=== PATIENT | female | born 1945 | race Caucasian/White ===

== ENCOUNTER 2019-10-07 18:50 | Inpatient (IN) ==
[2019-10-07] MEDS ORDERED: NS 1,000 ML IV ONE ×2 (19:51→23:40)
[2019-10-07 20:29] LABS: ALB/GLOB RATIO 1.2; ALBUMIN 3.9 g/dL (3.5-5.0); CALCIUM 9.5 mg/dL (8.8-10.2); CREATININE 2.3 mg/dL (0.5-0.9); TOTAL BILIRUBIN 0.57 mg/dL (0.20-1.00); TOTAL PROTEIN 7.2 g/dL (6.3-8.3)
[2019-10-07 20:49] LABS: CK INDEX 1.1 (0.0-2.5); CK-MB 3.45 ng/mL (0.0-5.0)
[2019-10-07 22:14] LABS: BASO# 0.02 X1000 (0.0-0.2); BASO% 0.1 % (0.0-0.8); HEMATOCRIT 35.4 % (37.0-47.0); HEMOGLOBIN 11.4 g/dL (12.0-16.0); IMM GRAN# 0.11 X1000 (0.0-0.04); IMM GRAN% 0.5 % (0.0-0.5); LYMPH# 0.36 X1000 (1.2-3.4); LYMPH% 1.5 % (20.5-51.1); MCH 28.1 PG (27-31); MCHC 32.2 g/dL (33-37); MCV 87.2 FL (81-99); MONO# 1.24 X1000 (0.11-0.59); MONO% 5.3 % (1.7-9.3); NEUT# 21.83 X1000 (1.4-6.5); NEUT% 92.6 % (42.2-75.2); PLT 162 X1000 (130-400); RBC 4.06 XMIL (4.2-5.4); RDW 13.8 % (11.5-14.5); WBC 23.56 X1000 (4.8-10.8)
[2019-10-08 00:15] LABS: URINE SOURCE CATH
[2019-10-08 00:20] LABS: BILIRUBIN URINE NEGATIVE (NEGATIVE); BLOOD URINE SMALL (NEGATIVE); COLOR YELLOW; GLUCOSE URINE NEGATIVE (NEGATIVE); KETONE URINE NEGATIVE (NEGATIVE); LEUKOCYTES URINE NEGATIVE (NEGATIVE); NITRITE URINE NEGATIVE (NEGATIVE); PROTEIN URINE TRACE mg/dL (NEGATIVE); SP GRAVITY URINE 1.013; TURBIDITY URINE CLEAR (CLEAR); UR EPITHELIAL CELLS <10 /HPF (<10); URINE BACTERIA NEGATIVE /HPF; URINE RBC <10 /HPF (<10); URINE WBC <10 /HPF (<10); UROBILINOGEN URINE NORMAL (NORMAL)
--- NOTE | 2019-10-08 01:17 | PROVIDER DOCUMENTATION ---
This chart was entered by Stephanie Stiles Scribe, acting as scribe for Lamont Torrez DO. HPI-General Adult - General Chief Complaint: Fall Stated Complaint: FALL Time Seen by Provider: 10/07/19 19:42 Source: patient, EMS Home Medications: Home Medication List Medication Instructions Recorded Confirmed Last Taken Type Aripiprazole 30 mg PO DAILY 10/07/19 10/07/19 Unknown History Aspirin EC 81 mg PO DAILY 10/07/19 10/07/19 Unknown History Furosemide [Lasix] 40 mg PO DAILY 10/07/19 10/07/19 10/07/19 History 0900 Gabapentin 300 mg PO TID 10/07/19 10/07/19 Unknown History Hydralazine [Apresoline] 50 mg PO BID 10/07/19 10/07/19 Unknown History Insulin Glargine,Hum.rec.anlog 55 units SQ QHS 10/07/19 10/07/19 Unknown History [Lantus Solostar] Metoprolol [Lopressor] 50 mg PO DAILY 10/07/19 10/07/19 Unknown History Paroxetine [Paxil] 10 mg pe PO DAILY 10/07/19 10/07/19 Unknown History Pravastatin Sodium 80 mg PO DAILY 10/07/19 10/07/19 Unknown History - History of Present Illness -Gen Adult Nature of Presenting Problems: Pt is a 74 yowf brought in by EMS for falling 2 xs today at home. Pt states she woke up with a headache and stomachache. Pt states she took PeptoBismal and felt better. Pt states later today her legs startedshaking and then she fell and hit her back on the door frame. Pt states her back is now hurting and her legs feel weak. Pt has a hx of CHF, HTN, hyperlipidemia, irregular heart rhythm and cellulitits on her legs and feet. Pt is pale and alert. Location of Pain/Injury: reports: back, generalized (generalized weakness) Pain Radiation: reports: no radiation Quality of Pain: reports: aching Severity: reports: moderate Onset/Duration: reports: abrupt, this morning Timing: reports: still present, getting worse Context/Activities at Onset: reports: light activity Modifying Factors: worse with: movement Associated Symptoms: reports: loss of appetite, weakness Similar Symptoms Previously?: No Recently seen or treated by another doctor?: Yes (Pt states she saw her PCP Dr. Reyna 1 wk ago) Review of Systems - Adult - REVIEW OF SYSTEMS - ADULT Constitutional: denies: chills, fever Eyes: reports: no symptoms reported Ears, Nose, Mouth & Throat: reports: no symptoms reported Cardiovascular: denies: chest pain, syncope Respiratory: denies: cough, shortness of breath Gastrointestinal: denies: abdominal pain, nausea, vomiting Genitourinary: reports: no symptoms reported Musculoskeletal: reports: see HPI, back pain, muscle weakness Integumentary: reports: no symptoms reported Neurological: reports: see HPI, loss of balance Psychiatric: reports: no symptoms reported Endocrine: reports: no symptoms reported Hematologic/Lymphatic: reports: no symptoms reported Allergic/Immunologic: reports: no symptoms reported All Other Systems: Reviewed and Negative Past History - Adult - PAST MEDICAL HISTORY-ADULT Review of Records: reports: Old Records Reviewed, Nursing Assessment Review, Medications Reviewed, Social history reviewed & non-contributory. Major Childhood Illnesses: reports: denies history Cardiovascular: reports: CHF, HTN, hyperlipidemia Respiratory: reports: denies history Gastrointestinal: reports: denies history Obstetrical/Gynecological: reports: denies history Genitourinary: reports: denies history Musculoskeletal: reports: denies history Neurological: reports: denies history Endocrine/Immune: reports: denies history Other Conditions: reports: denies history, skin disorder (cellulitis) - IMMUNIZATION STATUS Childhood Immunizations: See Nurse Assessment Flu Vaccine: See Nurse Assessment - FAMILY HISTORY Family History: reviewed, not pertinent - SOCIAL HISTORY Smoking: non-smoker Substance Use: denies Living Situation: alone Physical Exam-General - PHYSICAL EXAM-ADULT Initial Vital Signs Reviewed: Yes - CONSTITUTIONAL General Appearance: appears well, alert, no apparent distress, obese - EYES Eyes: PERRL/EOMI, pink conjunctivae - HEAD, EARS, NOSE, MOUTH & THROAT HENMT: normocephalic/atraumatic, moist mucous membranes, normal ENT inspection, pharynx normal - NECK Neck: non-tender, normal inspection - RESPIRATORY Respiratory: chest non-tender, lungs clear, normal breath sounds, no pleuratic chest pain, no respiratory distress, no accessory muscle use - CARDIOVASCULAR Cardiovascular: normal peripheral pulses - GASTROINTESTINAL (ABDOMEN) Abdominal Exam: normal bowel sounds, non tender, soft, no organomegaly, no pulsatile mass - LYMPHATIC Lymphatic: no adenopathy - MUSCULOSKELETAL Back Exam: normal inspection, no CVA tenderness, no vertebral tenderness Extremity: normal range of motion, non-tender, normal inspection, pedal edema (bilateral), tenderness (left leg) - SKIN Integumentary: warm/dry, pallor - NEUROLOGIC Neurologic: grossly normal - PSYCHIATRIC Psych/Mental Status: normal mood/affect, normal thought content, normal thought process, oriented x 3 Progress - PLAN OF CARE/RESULTS Progress/Plan/Lab Results: Orders Category Date Time Status NEWS Score 2-4:Order NEWS Lactate Series NOW Care 10/07/19 19:07 Active CBC WITH ELECTRONIC DIFF [HEME] Stat Lab 10/07/19 19:50 Uncollected CK PROFILE [SP CHEM] Stat Lab 10/07/19 20:00 Received COMPREHENSIVE METABOLIC PANEL [CHEM] Stat Lab 10/07/19 20:00 Received LACTATE, PLASMA [CHEM] Q3H Lab 10/07/19 19:15 Uncollected LACTATE, PLASMA [CHEM] Q3H Lab 10/07/19 22:15 Uncollected LACTATE, PLASMA [CHEM] Q3H Lab 10/08/19 01:15 Uncollected TROPONIN T HIGH SENSITIVITY Stat Lab 10/07/19 19:50 Uncollected 0.9% Sodium Chloride Inj [Ns] 1,000 ml Med 10/07/19 19:51 Active IV 500 mls/hr Result Diagrams: 10/07/19 21:56 10/07/19 20:00 - XRAY 1 XRAY Study: Chest Impression: See EMR Report - CONSULTS/PCP/HOSPITALIST Notification #1 *Consult/PCP/Hospitalist*: Dr Mosley Consult Disposition: Will see in ED Departure - Departure Date of Disposition Decision: 10/08/19 Time of Disposition Decision: 01:15 DIAGNOSIS: Weakness Leukocytosis Qualifiers: Leukocytosis type: unspecified Qualified Code(s): D72.829 - Elevated white blood cell count, unspecified Disposition: ADMITTED INPATIENT 09 Certified Medical Emergency: Emergent Condition: Stable Referrals and Follow-Ups: Stevie Reyna Jr, MD [Primary Care Provider] - - Critical Care Note This patient required my direct & personal management of CC.: No Attestation - Physician/ MEAGAN Attestation Patient care was provided by Advanced Practice Provider:: No The physician spent face to face time with patient:: Yes Advanced Practice Provider documentation review:: Supervising physician onsite and consulted in the evaluation and care of this patient. The physician did have a face to face encounter with the patient. This chart was documented by the indicated scribe, (Stephanie Stiles, Mya) and accurately reflects the services I performed and decisions made by , Lamont Torrez DO, as attested by the provider's signature.
[2019-10-08] MEDS ORDERED: VANCOMYCIN IV PER PHARMACY MISC SCH (02:00)
--- NOTE | 2019-10-08 03:15 | HISTORY AND PHYSICAL ---
PRIMARY CARE PROVIDER: Dr. Reyna. CHIEF COMPLAINT: Weakness, falls, not feeling well. HISTORY OF PRESENTING ILLNESS: A 74-year-old elderly female with a history of recurrent falls, diabetes mellitus type 2, hypertension, CHF and atrial fibrillation, who had presented to the emergency department due to 1-day history of having difficulty ambulating. She states that she was so weak she was unable to get up. She was also noticing that her left leg was getting red and tender. She was seen in the ED and her symptoms were consistent with cellulitis. Subsequently it was thought that she will need admission for further management. At the time of my examination the patient denied any headache, fever, chills, chest pain, shortness of breath, hemoptysis or weight changes, but complained of weakness and left lower extremity pain. PAST MEDICAL HISTORY: Includes diabetes mellitus type 2, hypertension, CHF, atrial fibrillation, recurrent falls. PAST SURGICAL HISTORY: Cataract surgery, back surgery, right arm surgery. ALLERGIES: No known drug allergies. MEDICATIONS: Current medications include Lantus 55 units subcutaneous at bedtime; aripiprazole 30 mg p.o. daily; aspirin 81 mg p.o. daily; furosemide 40 mg p.o. daily; gabapentin 300 mg p.o. t.i.d.; hydralazine 50 mg p.o. b.i.d.; metoprolol 50 mg p.o. daily; paroxetine 10 mg p.o. daily; pravastatin 80 mg p.o. at bedtime. SOCIAL HISTORY: She denies any history of smoking, alcohol or illicit drug use. FAMILY HISTORY: No history of coronary disease. REVIEW OF SYSTEMS: Fourteen-point review of systems is as in HPI. Other systems negative. PHYSICAL EXAMINATION: GENERAL: Cooperative, friendly obese female. She is resting more comfortably now. VITAL SIGNS: Temperature 98.9 degrees, pulse 99, respirations 20, blood pressure 106/66. HEENT: Atraumatic, normocephalic. Extraocular movements intact. PERRLA. NECK: No masses. CHEST: Clear to auscultation. CARDIOVASCULAR: Regular rate and rhythm. ABDOMEN: Soft, obese. Positive bowel sounds. EXTREMITIES: Left lower extremity has moderate erythema and tenderness. NEUROLOGIC: She is awake, alert and oriented x3. GENITOURINARY: No bladder distention. SKIN: Warm. LABORATORY DATA: WBC is 23.56, hemoglobin 11.4, hematocrit 35.4, platelets 162,000. Sodium 137, potassium 5.0, chloride 99, CO2 is 21, BUN is 75, creatinine is 2.3, glucose is 70. ASSESSMENT: A 74-year-old obese female with a history of diabetes mellitus type 2, recurrent falls, hypertension, congestive heart failure and atrial fibrillation, who had presented to the emergency department with 1-day history of worsening weakness such that she could not ambulate. She was seen in the emergency department. She was evaluated. She was complaining of left lower extremity pain, and her symptoms were consistent with cellulitis. Subsequently she will need admission for further management. 1. Left lower extremity cellulitis. 2. Generalized weakness. 3. Diabetes mellitus type 2. 4. Hypertension. 5. Acute kidney injury. PLAN: 1. We will admit the patient to the medical floor with telemetry. 2. We will start the patient on IV antibiotics. 3. We will consult PT. 4. We will monitor blood glucose, put the patient on sliding scale insulin regimen. 5. Monitor blood pressure. Resume antihypertensive agent. 6. Monitor her renal function. Continue gentle hydration. 7. We will continue to follow, reassess and make further recommendations based on patient's clinical course. cc: MD Stevie Bardales Jr, MD
[2019-10-08] MEDS: NS 1,000 ML IV SCH ×2 (03:22→18:02)
[2019-10-08] MEDS: ROCEPHIN 1 GM in NS 50 ML IV SCH (03:22)
[2019-10-08] MEDS: TYLENOL PO PRN ×2 (03:26→18:04)
[2019-10-08] MEDS ORDERED: VANCOMYCIN 2,500 MG in NS 500 ML IV ONE (05:30)
[2019-10-08] MEDS ORDERED: HUMULIN R SUBQ SCH (07:00)
--- NOTE | 2019-10-08 08:32 | Diag Imaging Result Doc PS360 ---
EXAM: CHEST-PORTABLE INDICATION: leukocytosis TECHNIQUE: One view COMPARISON: None. FINDINGS: Inspiration is suboptimal. The lungs are grossly clear. There is no discrete pleural fluid collection or pneumothorax. The cardiomediastinal silhouette and central vasculature are grossly unremarkable. IMPRESSION: No evidence of acute pathology by plain radiograph. Electronically signed by Kushal Roth 10/08/2019 8:30 AM
--- NOTE | 2019-10-08 10:22 | Diag Imaging Result Doc PS360 ---
EXAM: CT HEAD W/O CONTRAST INDICATION: weakness TECHNIQUE: This exam was performed using automated exposure control, adjustment of mA or kV according to patient size, and/or use of iterative reconstruction technique. COMPARISON: None. FINDINGS: There is no definite acute infarct given the limited sensitivity of CT versus MRI. There is no discrete intracranial mass, mass effect, or intracranial hemorrhage. The surrounding soft tissues and bony structures are essentially unremarkable. IMPRESSION: No evidence of acute intracranial pathology. Electronically signed by Kushal Roth 10/08/2019 10:19 AM
--- NOTE | 2019-10-08 10:45 | PROGRESS NOTE ---
DATE: 10/08/2019 SUBJECTIVE: The patient says that she fell and going across the carpet, she skinned her knee. She had been treated for cellulitis and this seemed to have gotten better and she just finished up some antibiotics but it looks like she has gotten new cellulitis now. Had a temperature of 100.5 degrees Fahrenheit. White count 23,560. She also has some chronic renal failure with a creatinine today of 2.3, BUN 75, and a GFR of 21. OBJECTIVE: Vital signs: This morning show a temperature 97.8 degrees Fahrenheit, respirations 12, pulse 75 and regular, blood pressure 140/72. HEENT: She is normocephalic. EOMs intact. PERRLA. Throat clear. Lungs: Clear to auscultation and percussion without rhonchi, rales, or wheezes. Heart: Regular rate and rhythm without murmurs, gallops, or friction rubs. Abdomen: Soft. Active bowel sounds. No organomegaly or tenderness. Neurological: Intact grossly. Extremities: The patient does have redness to the left lower extremity consistent with cellulitis and a new abraded area on her left knee. ASSESSMENT: She has a history of congestive heart failure, atrial fibrillation, bipolar illness, morbid obesity, and diabetes mellitus. PLAN: We will place on a diabetic diet. We will make sure she has a sliding scale. We will continue IV antibiotics. She is on vancomycin and Rocephin. We will get a urine myoglobin and follow lab work. cc: Stevie Reyna Jr, MD
[2019-10-08] MEDS: LASIX PO SCH (11:02)
[2019-10-08] MEDS: NEURONTIN PO SCH ×3 (11:02→21:00)
[2019-10-08] MEDS: HEPARIN SUBQ SCH ×2 (11:02→21:01)
[2019-10-08] MEDS: ASPIRIN EC PO SCH (11:02)
[2019-10-08] MEDS: PAXIL PO SCH (11:02)
[2019-10-08] MEDS: APRESOLINE PO SCH ×2 (11:02→20:58)
[2019-10-08] MEDS: LOPRESSOR PO SCH (11:03)
[2019-10-08] MEDS: ABILIFY PO SCH (11:03)
[2019-10-08] MEDS: PRAVACHOL PO SCH (11:03)
[2019-10-08] MEDS: HUMULIN R SUBQ SCH ×3 (11:53→20:59)
--- NOTE | 2019-10-08 18:12 | EKG Report ---
Test Performed on : 10/08/2019 10:50:20 AM Test Reason : chf Blood Pressure : / mmHG Vent. Rate : 071 BPM Atrial Rate : 234 BPM P-R Int : 000 ms QRS Dur : 082 ms QT Int : 378 ms P-R-T Axes : 000 027 021 degrees QTc Int : 410 ms Atrial fibrillation. with premature ventricular or aberrantly conducted complexes. Abnormal ECG No previous ECGs available Confirmed by Micky Emmanuel MD ([id number]) on 10/09/2019 12:44:42 PM
[2019-10-09] MEDS: ROCEPHIN 1 GM in NS 50 ML IV SCH (02:30)
[2019-10-09] MEDS: HUMULIN R SUBQ SCH ×4 (06:02→21:13)
[2019-10-09 07:07] LABS: BASO# 0.01 X1000 (0.0-0.2); BASO% 0.1 % (0.0-0.8); EOS# 0.05 X1000 (0.0-0.7); EOS% 0.6 % (0.0-10.0); HEMATOCRIT 36.3 % (37.0-47.0); IMM GRAN# 0.02 X1000 (0.0-0.04); IMM GRAN% 0.3 % (0.0-0.5); LYMPH% 10.2 % (20.5-51.1); MCH 27.2 PG (27-31); MCHC 30.3 g/dL (33-37); MCV 89.9 FL (81-99); MONO% 6.4 % (1.7-9.3); MPV 11.5 FL (7.4-10.4); NEUT# 6.43 X1000 (1.4-6.5); NEUT% 82.4 % (42.2-75.2); PLT 117 X1000 (130-400); RBC 4.04 XMIL (4.2-5.4); RDW 13.9 % (11.5-14.5); WBC 7.81 X1000 (4.8-10.8)
[2019-10-09 07:21] LABS: CALCIUM 8.8 mg/dL (8.8-10.2); CREATININE 1.6 mg/dL (0.5-0.9)
[2019-10-09] MEDS: APRESOLINE PO SCH ×2 (08:17→21:16)
[2019-10-09] MEDS: ABILIFY PO SCH (08:17)
[2019-10-09] MEDS: LOPRESSOR PO SCH (08:17)
[2019-10-09] MEDS: ASPIRIN EC PO SCH (08:17)
[2019-10-09] MEDS: PRAVACHOL PO SCH (08:17)
[2019-10-09] MEDS: LASIX PO SCH (08:17)
[2019-10-09] MEDS: NEURONTIN PO SCH ×3 (08:17→21:16)
[2019-10-09] MEDS: PAXIL PO SCH (08:18)
[2019-10-09] MEDS: HEPARIN SUBQ SCH ×2 (08:18→21:14)
--- NOTE | 2019-10-09 10:19 | PROGRESS NOTE ---
DATE: 10/09/2019 SUBJECTIVE: The patient says she feels a little bit better. Her leg does look better. OBJECTIVE: Vital Signs: Blood pressure is 161/98, but earlier it was 128/52, respirations 22, earlier 16, pulse 90, temperature 99.3 degrees Fahrenheit. It may be that she has had a rise in her blood pressure, pulse rate, and respirations because of the fever. HEENT: She is normocephalic. EOMS intact. PERRLA. Throat clear. Lungs: Clear to auscultation and percussion without rhonchi, rales, or wheezes. Heart: Irregularly irregular without murmurs, gallops, or friction rubs. Abdomen: Soft. Active bowel sounds. No organomegaly or tenderness. Neurological: Intact grossly. Extremities: Left lower extremity shows less redness, but there is infection still there. LABORATORY DATA: Creatinine has dropped from 2.3 to 1.6. ASSESSMENT: 1. Cellulitis, left lower extremity. 2. Fall. 3. Abrasion, left knee. 4. Acute kidney injury on top of chronic kidney failure. 5. Morbid obesity. 6. Diabetes mellitus. 7. Atrial fibrillation. PLAN: Will continue IV antibiotics. cc: Stevie Reyna Jr, MD
[2019-10-09] MEDS: LOMOTIL PO PRN (13:39)
[2019-10-09] MEDS: VANCOMYCIN 2,000 MG in NS 500 ML IV SCH (18:22)
[2019-10-09] MEDS: TYLENOL PO PRN (19:41)
[2019-10-10] MEDS: ROCEPHIN 1 GM in NS 50 ML IV SCH (03:12)
[2019-10-10] MEDS: HUMULIN R SUBQ SCH ×4 (06:17→20:29)
[2019-10-10 07:56] LABS: BASO# 0.01 X1000 (0.0-0.2); BASO% 0.1 % (0.0-0.8); EOS# 0.09 X1000 (0.0-0.7); EOS% 1.2 % (0.0-10.0); HEMATOCRIT 37.3 % (37.0-47.0); HEMOGLOBIN 11.3 g/dL (12.0-16.0); IMM GRAN# 0.03 X1000 (0.0-0.04); IMM GRAN% 0.4 % (0.0-0.5); LYMPH% 14.7 % (20.5-51.1); MCH 27.6 PG (27-31); MCHC 30.3 g/dL (33-37); MONO# 1.02 X1000 (0.11-0.59); MONO% 13.6 % (1.7-9.3); MPV 11.1 FL (7.4-10.4); NEUT# 5.25 X1000 (1.4-6.5); PLT 120 X1000 (130-400); RDW 13.8 % (11.5-14.5)
[2019-10-10 08:15] LABS: CALCIUM 8.9 mg/dL (8.8-10.2); CREATININE 1.8 mg/dL (0.5-0.9); POTASSIUM 4.6 mmol/L (3.5-5.1)
[2019-10-10] MEDS: PRAVACHOL PO SCH (08:27)
[2019-10-10] MEDS: APRESOLINE PO SCH ×2 (08:27→20:27)
[2019-10-10] MEDS: ASPIRIN EC PO SCH (08:27)
[2019-10-10] MEDS: LOPRESSOR PO SCH (08:27)
[2019-10-10] MEDS: ABILIFY PO SCH (08:27)
[2019-10-10] MEDS: TYLENOL PO PRN ×2 (08:27→17:01)
[2019-10-10] MEDS: PAXIL PO SCH (08:27)
[2019-10-10] MEDS: HEPARIN SUBQ SCH ×2 (08:27→20:28)
[2019-10-10] MEDS: LASIX PO SCH (08:27)
[2019-10-10] MEDS: NEURONTIN PO SCH ×3 (08:27→20:27)
--- NOTE | 2019-10-10 08:47 | PROGRESS NOTE ---
DATE: 10/10/2019 SUBJECTIVE: The patient started having diarrhea a couple of days ago; did not tell me about it until today. She was tested for C difficile and the antigen came back positive and antibody negative. She may not have had time to have developed antibody reaction yet. The toxin was negative. We will start her on p.o. vancomycin, stop her Rocephin. Continue IV vancomycin. OBJECTIVE: Vital Signs: Blood pressure is 159/101, but has not had her blood pressure medicine yet this morning, respirations 19, pulse 85, temperature 97.9 degrees Fahrenheit. HEENT: She is normocephalic. EOMS intact. PERRLA. Throat clear. Lungs: Clear to auscultation and percussion without rhonchi, rales, wheezes. Heart: Regular rate and rhythm without murmurs, gallops, friction rubs. Abdomen: Soft. Active bowel sounds. No organomegaly or tenderness. Extremities: Still has redness left lower extremity, but I think there has been some improvement of the cellulitis. White count 7500, hemoglobin 11.3. Electrolytes essentially normal. Creatinine back to 1.8. Blood sugars around 109 this morning. ASSESSMENT: 1. Cellulitis, left lower extremity. 2. Clostridium difficile infection. 3. Diabetes mellitus. 4. Congestive heart failure. 5. Morbid obesity. 6. Bipolar illness. PLAN: We will continue the p.o. and IV vancomycin. We will hold off of the Rocephin. We will await and see how she responds to p.o. vancomycin. cc: Stevie Reyna Jr, MD
[2019-10-10] MEDS: VANCOCIN PO SCH ×3 (09:14→20:28)
[2019-10-11] MEDS: VANCOCIN PO SCH ×5 (02:26→21:41)
[2019-10-11] MEDS: HUMULIN R SUBQ SCH ×4 (06:07→21:42)
[2019-10-11 06:58] LABS: BASO# 0.01 X1000 (0.0-0.2); BASO% 0.1 % (0.0-0.8); EOS# 0.17 X1000 (0.0-0.7); EOS% 2.5 % (0.0-10.0); HEMATOCRIT 35.1 % (37.0-47.0); HEMOGLOBIN 10.7 g/dL (12.0-16.0); IMM GRAN# 0.06 X1000 (0.0-0.04); IMM GRAN% 0.9 % (0.0-0.5); LYMPH# 0.82 X1000 (1.2-3.4); LYMPH% 12.1 % (20.5-51.1); MCH 27.2 PG (27-31); MCHC 30.5 g/dL (33-37); MCV 89.1 FL (81-99); MONO# 0.56 X1000 (0.11-0.59); MONO% 8.2 % (1.7-9.3); MPV 11.3 FL (7.4-10.4); NEUT# 5.18 X1000 (1.4-6.5); NEUT% 76.2 % (42.2-75.2); PLT 136 X1000 (130-400); RBC 3.94 XMIL (4.2-5.4); RDW 13.7 % (11.5-14.5)
[2019-10-11 07:41] LABS: CALCIUM 8.8 mg/dL (8.8-10.2); CREATININE 1.8 mg/dL (0.5-0.9); POTASSIUM 4.6 mmol/L (3.5-5.1)
--- NOTE | 2019-10-11 08:52 | PROGRESS NOTE ---
DATE: 10/11/2019 SUBJECTIVE: The patient says she has had no more diarrhea. As a matter of fact, she has not had a bowel movement since she took some Lomotil yesterday. She has been placed on p.o. vancomycin as she was positive for Clostridium difficile antigen. OBJECTIVE: Temperature is 98.9 degrees Fahrenheit, respirations 14, pulse 136, back down to 101 slightly after that, blood pressure 140/82, and pulse 97.HEENT: She is normocephalic. EOMS intact. PERRLA. Throat clear. Lungs: Clear to auscultation and percussion without rhonchi, rales, or wheezes. Heart: Irregularly irregular without murmurs, gallops, or friction rubs. Abdomen: Soft. Active bowel sounds. No organomegaly or tenderness. Extremities: Left lower extremity cellulitis is still present. I think it has improved slightly. Her leg is still very tender and still has redness. LABORATORY: White count 6800, hemoglobin 10.7, creatinine 1.8, BUN 49, and GFR is only 28. ASSESSMENT: 1. Cellulitis left lower extremity. 2. Atrial fibrillation. 3. Congestive heart failure. 4. Morbid obesity. 5. Chronic kidney disease. 6. Bipolar illness. PLAN: Continue support with IV antibiotics. cc: Stevie Reyna Jr, MD
[2019-10-11] MEDS: VANCOMYCIN 2,000 MG in NS 500 ML IV SCH ×2 (11:13→11:25)
[2019-10-11] MEDS: NEURONTIN PO SCH ×4 (11:14→21:41)
[2019-10-11] MEDS: ASPIRIN EC PO SCH ×2 (11:14→11:27)
[2019-10-11] MEDS: PAXIL PO SCH ×2 (11:15→11:26)
[2019-10-11] MEDS: APRESOLINE PO SCH ×3 (11:15→21:40)
[2019-10-11] MEDS: HEPARIN SUBQ SCH ×3 (11:15→21:40)
[2019-10-11] MEDS: LOPRESSOR PO SCH ×2 (11:15→11:27)
[2019-10-11] MEDS: LASIX PO SCH (11:15)
[2019-10-11] MEDS: PRAVACHOL PO SCH ×2 (11:15→11:25)
[2019-10-11] MEDS: ABILIFY PO SCH (12:16)
[2019-10-12] MEDS: VANCOCIN PO SCH ×4 (01:43→22:28)
[2019-10-12] MEDS: HUMULIN R SUBQ SCH ×4 (06:42→22:37)
[2019-10-12 07:40] LABS: BASO# 0.02 X1000 (0.0-0.2); BASO% 0.3 % (0.0-0.8); EOS# 0.16 X1000 (0.0-0.7); EOS% 2.2 % (0.0-10.0); HEMOGLOBIN 10.7 g/dL (12.0-16.0); IMM GRAN# 0.12 X1000 (0.0-0.04); IMM GRAN% 1.6 % (0.0-0.5); LYMPH# 0.73 X1000 (1.2-3.4); LYMPH% 9.9 % (20.5-51.1); MCHC 30.6 g/dL (33-37); MCV 88.4 FL (81-99); MONO# 0.68 X1000 (0.11-0.59); MONO% 9.3 % (1.7-9.3); MPV 11.1 FL (7.4-10.4); NEUT# 5.64 X1000 (1.4-6.5); NEUT% 76.7 % (42.2-75.2); PLT 155 X1000 (130-400); RBC 3.96 XMIL (4.2-5.4); RDW 13.4 % (11.5-14.5); WBC 7.35 X1000 (4.8-10.8)
[2019-10-12 08:09] LABS: CALCIUM 8.7 mg/dL (8.8-10.2); CREATININE 1.4 mg/dL (0.5-0.9); POTASSIUM 4.3 mmol/L (3.5-5.1)
[2019-10-12] MEDS: HEPARIN SUBQ SCH ×2 (08:47→22:29)
[2019-10-12] MEDS: ASPIRIN EC PO SCH (08:48)
[2019-10-12] MEDS: PAXIL PO SCH (08:48)
[2019-10-12] MEDS: LOPRESSOR PO SCH (08:48)
[2019-10-12] MEDS: ABILIFY PO SCH (08:48)
[2019-10-12] MEDS: APRESOLINE PO SCH ×2 (08:48→22:28)
[2019-10-12] MEDS: LASIX PO SCH (08:48)
[2019-10-12] MEDS: PRAVACHOL PO SCH (08:48)
--- NOTE | 2019-10-12 08:55 | PROGRESS NOTE ---
DATE: 10/12/2019 SUBJECTIVE: The patient says she had diarrhea 3 times yesterday. She is being treated for Clostridium difficile with vancomycin, right now 250 mg p.o. 4 times daily, and she is on IV vancomycin for her cellulitis. OBJECTIVE: Blood pressure was 98/62 on the last check but the previous one was 140/81, respirations 20, pulse 91, temperature 98.5 degrees Fahrenheit. HEENT: She is normocephalic. EOMs intact. PERRLA. Throat clear. Lungs: Clear to auscultation and percussion without rhonchi, rales, or wheezes. Heart: Irregularly irregular without murmurs, gallops, or friction rubs. Abdomen: Soft. Active bowel sounds. No organomegaly or tenderness. Left lower extremity still with swelling with some redness and cellulitis but I believe it is improving. White count is down to 7350, down from a high of 23,000. Hemoglobin 10.7, platelet count is 155,000. Electrolytes essentially normal. Creatinine down to 1.4, BUN 21. ASSESSMENT: 1. Cellulitis, left lower extremity. 2. Clostridium difficile infection. 3. Atrial fibrillation. 4. Diabetes mellitus. 5. Morbid obesity. PLAN: Continue antibiotics. cc: Stevie Reyna Jr, MD
[2019-10-12] MEDS: NEURONTIN PO SCH ×3 (10:02→23:55)
[2019-10-13] MEDS: TYLENOL PO PRN ×2 (00:36→09:55)
[2019-10-13] MEDS: VANCOCIN PO SCH ×4 (03:24→21:09)
[2019-10-13] MEDS: VANCOMYCIN 2,000 MG in NS 500 ML IV SCH (03:25)
[2019-10-13] MEDS: HUMULIN R SUBQ SCH ×4 (06:59→21:09)
[2019-10-13 07:37] LABS: BASO# 0.03 X1000 (0.0-0.2); BASO% 0.4 % (0.0-0.8); EOS# 0.16 X1000 (0.0-0.7); EOS% 2.2 % (0.0-10.0); HEMATOCRIT 35.9 % (37.0-47.0); HEMOGLOBIN 11.1 g/dL (12.0-16.0); IMM GRAN% 2.8 % (0.0-0.5); LYMPH# 0.87 X1000 (1.2-3.4); LYMPH% 12.1 % (20.5-51.1); MCH 27.2 PG (27-31); MCHC 30.9 g/dL (33-37); MONO# 0.62 X1000 (0.11-0.59); MONO% 8.6 % (1.7-9.3); MPV 10.8 FL (7.4-10.4); NEUT# 5.29 X1000 (1.4-6.5); NEUT% 73.9 % (42.2-75.2); PLT 174 X1000 (130-400); RBC 4.08 XMIL (4.2-5.4); RDW 13.4 % (11.5-14.5); WBC 7.17 X1000 (4.8-10.8)
[2019-10-13 08:07] LABS: CALCIUM 9.2 mg/dL (8.8-10.2); CREATININE 1.5 mg/dL (0.5-0.9); POTASSIUM 4.1 mmol/L (3.5-5.1)
--- NOTE | 2019-10-13 08:54 | PROGRESS NOTE ---
DATE: 10/13/2019 SUBJECTIVE: The patient says she is feeling a little bit better. She has not had any fever since the . White count is now normal. She is still having some diarrhea, has Clostridium difficile. OBJECTIVE: Blood pressure is 140/87, respirations 19, pulse 51, temperature 97.5 degrees Fahrenheit. HEENT: She is normocephalic. EOMs intact. PERRLA. Throat clear. Lungs: Clear to auscultation and percussion without rhonchi, rales, or wheezes. Heart: Irregularly irregular without murmurs, gallops, or friction rubs. Abdomen: Soft. Active bowel sounds. No organomegaly or tenderness. Neurological: Examination intact grossly. The patient did lose her IV source so we are going to put in a PICC line. ASSESSMENT: 1. Cellulitis of left lower extremity, seems to be improving. Less tender, less redness, less swelling. 2. Clostridium difficile infection. 3. Chronic atrial fibrillation. 4. Diabetes mellitus. 5. Morbid obesity. PLAN: Continue IV antibiotics. Continue p.o. vancomycin for her Clostridium difficile infection. cc: Stevie Reyna Jr, MD
[2019-10-13] MEDS: ABILIFY PO SCH (09:04)
[2019-10-13] MEDS: PAXIL PO SCH (09:04)
[2019-10-13] MEDS: PRAVACHOL PO SCH (09:04)
[2019-10-13] MEDS: APRESOLINE PO SCH ×2 (09:04→21:08)
[2019-10-13] MEDS: ASPIRIN EC PO SCH (09:05)
[2019-10-13] MEDS: HEPARIN SUBQ SCH ×2 (09:05→21:09)
[2019-10-13] MEDS: LOPRESSOR PO SCH (09:05)
[2019-10-13 09:52] LABS: INR 0.99; PROTIME 13.2 Seconds (11.0-16.0)
[2019-10-13] MEDS: LOMOTIL PO PRN (09:55)
[2019-10-13] MEDS: NEURONTIN PO SCH ×2 (09:56→21:09)
[2019-10-13] MEDS: LASIX PO SCH (11:37)
[2019-10-14] MEDS: VANCOCIN PO SCH ×5 (01:55→21:07)
[2019-10-14] MEDS: HUMULIN R SUBQ SCH ×4 (06:38→21:09)
[2019-10-14 07:11] LABS: BASO# 0.04 X1000 (0.0-0.2); BASO% 0.5 % (0.0-0.8); EOS# 0.22 X1000 (0.0-0.7); EOS% 2.9 % (0.0-10.0); HEMATOCRIT 36.9 % (37.0-47.0); HEMOGLOBIN 11.5 g/dL (12.0-16.0); IMM GRAN# 0.25 X1000 (0.0-0.04); IMM GRAN% 3.3 % (0.0-0.5); LYMPH# 0.87 X1000 (1.2-3.4); LYMPH% 11.4 % (20.5-51.1); MCH 27.8 PG (27-31); MCHC 31.2 g/dL (33-37); MCV 89.1 FL (81-99); MONO% 10.4 % (1.7-9.3); MPV 10.8 FL (7.4-10.4); NEUT# 5.48 X1000 (1.4-6.5); NEUT% 71.5 % (42.2-75.2); PLT 176 X1000 (130-400); RBC 4.14 XMIL (4.2-5.4); RDW 13.5 % (11.5-14.5); WBC 7.66 X1000 (4.8-10.8)
[2019-10-14 07:43] LABS: CALCIUM 9.1 mg/dL (8.8-10.2); CREATININE 1.5 mg/dL (0.5-0.9); POTASSIUM 4.5 mmol/L (3.5-5.1)
--- NOTE | 2019-10-14 09:18 | PROGRESS NOTE ---
DATE: 10/14/2019 SUBJECTIVE: The patient says she is still having pain down in her left lower extremity but it is getting better. Her diarrhea has gotten better. She has had Clostridium difficile and she has got a cellulitis of the left lower extremity. OBJECTIVE: Vital signs are stable. Has not had a fever since the . Blood pressure is 149/85, respirations 14, pulse 82, temperature 98.9 degrees Fahrenheit.HEENT: She is normocephalic. EOMS intact. PERRLA. Throat clear. Lungs: Are clear to auscultation and percussion without rhonchi, rales, or wheezes. Heart: Irregularly irregular without murmurs, gallops, friction rubs. Abdomen: Soft, active bowel sounds, no organomegaly or tenderness. Neurological: Intact grossly. There is still redness to the left lower extremity showing cellulitis, but it is improving. ASSESSMENT: 1. Cellulitis, left lower extremity. 2. Clostridium difficile infection. 3. Atrial fibrillation. 4. Diabetes mellitus. 5. Morbid obesity. PLAN: Continue care. cc: Stevie Reyna Jr, MD
[2019-10-14] MEDS: VANCOMYCIN 2,000 MG in NS 500 ML IV SCH (09:37)
[2019-10-14] MEDS: ABILIFY PO SCH (09:40)
[2019-10-14] MEDS: PRAVACHOL PO SCH (09:40)
[2019-10-14] MEDS: APRESOLINE PO SCH ×2 (09:40→21:08)
[2019-10-14] MEDS: PAXIL PO SCH (09:41)
[2019-10-14] MEDS: ASPIRIN EC PO SCH (09:41)
[2019-10-14] MEDS: LOPRESSOR PO SCH (09:41)
[2019-10-14] MEDS: LASIX PO SCH (09:41)
[2019-10-14] MEDS: ELIQUIS PO SCH ×2 (09:46→21:07)
[2019-10-14] MEDS: NEURONTIN PO SCH ×3 (09:47→21:10)
[2019-10-14] MEDS: TYLENOL PO PRN ×2 (11:53→21:09)
[2019-10-15] MEDS: VANCOCIN PO SCH ×4 (02:04→21:54)
[2019-10-15] MEDS: HUMULIN R SUBQ SCH ×4 (06:43→21:56)
[2019-10-15] MEDS: TYLENOL PO PRN ×2 (06:43→17:42)
[2019-10-15 07:33] LABS: BASO# 0.04 X1000 (0.0-0.2); BASO% 0.6 % (0.0-0.8); EOS# 0.23 X1000 (0.0-0.7); EOS% 3.3 % (0.0-10.0); HEMATOCRIT 37.4 % (37.0-47.0); HEMOGLOBIN 11.5 g/dL (12.0-16.0); IMM GRAN# 0.19 X1000 (0.0-0.04); IMM GRAN% 2.7 % (0.0-0.5); LYMPH# 0.64 X1000 (1.2-3.4); LYMPH% 9.2 % (20.5-51.1); MCH 27.3 PG (27-31); MCHC 30.7 g/dL (33-37); MCV 88.8 FL (81-99); MONO# 0.64 X1000 (0.11-0.59); MONO% 9.2 % (1.7-9.3); MPV 10.4 FL (7.4-10.4); NEUT# 5.18 X1000 (1.4-6.5); PLT 184 X1000 (130-400); RBC 4.21 XMIL (4.2-5.4); RDW 13.5 % (11.5-14.5); WBC 6.92 X1000 (4.8-10.8)
[2019-10-15 08:01] LABS: CALCIUM 9.2 mg/dL (8.8-10.2); CREATININE 1.4 mg/dL (0.5-0.9); POTASSIUM 4.2 mmol/L (3.5-5.1)
[2019-10-15] MEDS: PAXIL PO SCH (09:23)
[2019-10-15] MEDS: APRESOLINE PO SCH ×2 (09:23→21:53)
[2019-10-15] MEDS: ELIQUIS PO SCH ×2 (09:24→21:53)
[2019-10-15] MEDS: PRAVACHOL PO SCH (09:24)
[2019-10-15] MEDS: ASPIRIN EC PO SCH (09:24)
[2019-10-15] MEDS: LASIX PO SCH (09:24)
[2019-10-15] MEDS: LOPRESSOR PO SCH (09:24)
[2019-10-15] MEDS: ABILIFY PO SCH (09:25)
[2019-10-15] MEDS: NEURONTIN PO SCH ×4 (09:25→21:53)
--- NOTE | 2019-10-15 10:21 | PROGRESS NOTE ---
DATE: 10/15/2019 SUBJECTIVE: The patient says she is feeling better. OBJECTIVE: Vital Signs: Stable with temperature 97.8 degrees Fahrenheit, pulse 73, respirations 20, blood pressure 150/79. HEENT: She is normocephalic. EOMS intact. PERRLA. Throat clear. Lungs: Clear to auscultation and percussion without rhonchi, rales, or wheezes. Heart: Irregularly irregular rate and rhythm without murmurs, gallops or friction rubs. Abdomen: Soft. Active bowel sounds without organomegaly or tenderness. Having no diarrhea now. Neurological: Intact grossly. Extremities: The left lower extremity still shows some redness, but the swelling has gone down. The redness is less. The cellulitis is improving. ASSESSMENT: 1. Cellulitis, left lower extremity. 2. Diabetes mellitus. 3. Chronic atrial fibrillation. 4. Morbid obesity. 5. Deconditioning. 6. Clostridium difficile diarrhea. Last check for toxin was negative. The patient seems to be getting over this. She is on oral vancomycin. PLAN: Continue IV vancomycin, p.o. vancomycin. When she gets ready to go out of the hospital, we will place send her to rehab, but she says she is so weak and deconditioned. We will make arrangements for that hopefully the first of next week. cc: Stevie Reyna Jr, MD
[2019-10-15 16:12] LABS: URINE SOURCE CATH
[2019-10-15 16:16] LABS: BILIRUBIN URINE NEGATIVE (NEGATIVE); BLOOD URINE SMALL (NEGATIVE); COLOR STRAW; GLUCOSE URINE TRACE mg/dL (NEGATIVE); KETONE URINE NEGATIVE (NEGATIVE); LEUKOCYTES URINE TRACE (NEGATIVE); NITRITE URINE NEGATIVE (NEGATIVE); PH URINE 5.5; PROTEIN URINE NEGATIVE (NEGATIVE); SP GRAVITY URINE 1.006; TURBIDITY URINE CLEAR (CLEAR); UR EPITHELIAL CELLS <10 /HPF (<10); URINE BACTERIA NEGATIVE /HPF; URINE RBC <10 /HPF (<10); URINE WBC <10 /HPF (<10); UROBILINOGEN URINE NORMAL (NORMAL)
[2019-10-15] MEDS: ZOFRAN IV PRN (17:44)
[2019-10-15] MEDS: VANCOMYCIN 2,000 MG in NS 500 ML IV SCH (21:53)
[2019-10-16] MEDS: VANCOCIN PO SCH ×4 (01:20→21:25)
[2019-10-16] MEDS: HUMULIN R SUBQ SCH ×4 (06:07→21:25)
[2019-10-16] MEDS: PAXIL PO SCH (08:25)
[2019-10-16] MEDS: NEURONTIN PO SCH ×3 (08:25→21:25)
[2019-10-16] MEDS: PRAVACHOL PO SCH (08:25)
[2019-10-16] MEDS: ELIQUIS PO SCH ×2 (08:25→21:25)
[2019-10-16] MEDS: APRESOLINE PO SCH ×2 (08:26→21:25)
[2019-10-16] MEDS: ASPIRIN EC PO SCH (08:26)
[2019-10-16] MEDS: LOPRESSOR PO SCH (08:26)
[2019-10-16] MEDS: ABILIFY PO SCH (08:26)
[2019-10-16] MEDS: LASIX PO SCH (08:26)
--- NOTE | 2019-10-16 08:42 | PROGRESS NOTE ---
DATE: 10/16/2019 SUBJECTIVE: The patient says that she had some diarrhea again yesterday. We tried taking the Cisse catheter out but she retained over 700 mL of urine and could barely urinate. Urinalysis was done and urine culture is pending, but the urinalysis is clear. We will try again to bladder train and remove the Cisse catheter as I think she would be better without it. She has not had any diarrhea yet this morning but did have some again yesterday. OBJECTIVE: Blood pressure is 135/82, respirations 17, pulse 72, temperature 97.5 degrees Fahrenheit. HEENT: She is normocephalic. EOMs intact. PERRLA. Throat clear. Lungs: Clear to auscultation and percussion without rhonchi, rales, or wheezes. Heart: Irregularly irregular without murmurs, gallops, or friction rubs. Abdomen: Soft. Active bowel sounds. No organomegaly or tenderness. Neurological: Examination intact grossly. Left lower extremity still shows a little bit of redness but this is much improved. The cellulitis seems to be resolving. ASSESSMENT: 1. Cellulitis, left lower extremity. 2. Chronic atrial fibrillation. 3. Diabetes mellitus. 4. Morbid obesity. 5. Clostridium difficile infection with diarrhea. PLAN: Continue treatment. cc: Stevie Reyna Jr, MD
[2019-10-17] MEDS: VANCOCIN PO SCH ×4 (02:59→20:47)
[2019-10-17] MEDS: HUMULIN R SUBQ SCH ×4 (06:00→20:47)
[2019-10-17] MEDS: ABILIFY PO SCH (08:32)
[2019-10-17] MEDS: LOPRESSOR PO SCH (08:33)
[2019-10-17] MEDS: PRAVACHOL PO SCH (08:33)
[2019-10-17] MEDS: APRESOLINE PO SCH ×2 (08:33→20:47)
[2019-10-17] MEDS: PAXIL PO SCH (08:33)
[2019-10-17] MEDS: NEURONTIN PO SCH ×3 (08:33→20:47)
[2019-10-17] MEDS: ELIQUIS PO SCH ×2 (08:33→20:47)
[2019-10-17] MEDS: LASIX PO SCH (08:33)
[2019-10-17] MEDS: ASPIRIN EC PO SCH (08:33)
[2019-10-17] MEDS: VANCOMYCIN 2,000 MG in NS 500 ML IV SCH (08:43)
--- NOTE | 2019-10-17 09:09 | PROGRESS NOTE ---
DATE: 10/17/2019 SUBJECTIVE: The patient says she is still having lots of diarrhea. I am already treating her for Clostridium difficile with p.o. vancomycin. She is on IV vancomycin as well for her cellulitis, which is much better. She also had trouble with her urinary bladder. We have tried to take her Cisse catheter out. The first time, she retained over 750 mL, and the Cisse was placed back. We tried to bladder train her and remove it again, and again had problems and had to place it back. We will continue to try to bladder train her. If this does not get better soon, will get Urology to see her. Her last Clostridium difficile test on her stool was negative for the toxin. As a matter of fact, both times it has been negative for the toxin, but was positive for the antigen. OBJECTIVE: Vital Signs: Blood pressure 135/82, respirations 18, pulse 97, temperature 98 degrees. HEENT: She is normocephalic. EOMs intact. PERRLA. Throat clear. Lungs: Clear to auscultation and percussion without rhonchi, rales, or wheezes. Heart: Irregularly irregular without murmurs, gallops, friction rubs. Abdomen: Soft with hyperactive bowel sounds. No organomegaly or tenderness. Neurological: Intact grossly. Extremities: Cellulitis of the left lower extremity is much improved. PLAN: Will do a CT scan of the abdomen. Will have to do it without contrast because of her kidney failure. Continue to try to bladder train. ASSESSMENT: 1. Cellulitis, left lower extremity. 2. Clostridium difficile diarrhea. 3. Urinary retention. 4. Diabetes mellitus. 5. Morbid obesity. 6. Bipolar illness. 7. Atrial fibrillation. cc: Stevie Reyna Jr, MD
[2019-10-17] MEDS: TYLENOL PO PRN (14:57)
[2019-10-18] MEDS: ZOFRAN IV PRN (00:09)
[2019-10-18] MEDS: VANCOCIN PO SCH ×4 (02:46→20:56)
[2019-10-18] MEDS: HUMULIN R SUBQ SCH ×4 (06:28→21:56)
[2019-10-18] MEDS: LOPRESSOR PO SCH (08:21)
[2019-10-18] MEDS: NEURONTIN PO SCH ×3 (08:21→20:56)
[2019-10-18] MEDS: PAXIL PO SCH (08:22)
[2019-10-18] MEDS: LASIX PO SCH (08:22)
[2019-10-18] MEDS: PRAVACHOL PO SCH (08:22)
[2019-10-18] MEDS: APRESOLINE PO SCH ×2 (08:22→20:56)
[2019-10-18] MEDS: ELIQUIS PO SCH ×2 (08:22→20:56)
[2019-10-18] MEDS: ASPIRIN EC PO SCH (08:22)
[2019-10-18] MEDS: ABILIFY PO SCH (08:22)
--- NOTE | 2019-10-18 09:35 | PROGRESS NOTE ---
DATE: 10/18/2019 SUBJECTIVE: The patient says she is having incontinence of stool. Still has her Cisse catheter in, had urinary problems, we have eileen off 750 mL of urine after removing the Cisse so the bladder is not contracted back down. Had Clostridium difficile antigen on her stool studies, but no toxin x2, have been treating her with vancomycin p.o. and IV, treating her cellulitis of her left lower extremity, which is much better. OBJECTIVE: Vital Signs: Blood pressure 138/80, respirations 18, pulse 98, temperature 97.5 degrees Fahrenheit. HEENT: She is normocephalic. EOMS intact. PERRLA. Throat clear. Lungs: Clear to auscultation and percussion without rhonchi, rales, or wheezes. Heart: Irregular without murmurs, gallops, or friction rubs. Abdomen: Soft, active bowel sounds to hyperactive bowel sounds with mild tenderness. Neurological: Intact grossly. The left lower extremity shows improvement of the cellulitis. ASSESSMENT: 1. Cellulitis left lower extremity. 2. Diarrhea and stool incontinence with probable Clostridium difficile. 3. Congestive heart failure. 4. Chronic atrial fibrillation. 5. Urinary flow problems with enlarged bladder. PLAN: We will consult GI and consult Urology. cc: Stevie Reyna Jr, MD
--- NOTE | 2019-10-18 11:30 | Diag Imaging Result Doc PS360 ---
EXAM: CT ABDOMEN/PELVIS W/O CONTRAST INDICATION: ?COLITIS TECHNIQUE: This exam was performed using automated exposure control, adjustment of mA or kV according to patient size, and/or use of iterative reconstruction technique. COMPARISON: None. FINDINGS: There is a calcified stone in the gallbladder lumen and the gallbladder is distended. There is questionable gallbladder wall thickening. However, no pericholecystic inflammatory change is appreciated. Chronic or early acute cholecystitis is a consideration, however. Please correlate clinically. There is no evidence of biliary dilatation. The liver, spleen, pancreas, and adrenal glands are essentially unremarkable. The kidneys exhibit a lobulated contour, likely due to persistent lobulations or renal cortical scarring. The kidneys are somewhat obscured by streak artifact related to body habitus. They are unremarkable, otherwise. There is a Cisse catheter in the urinary bladder and the bladder is largely nondistended. There are coarse calcifications associated with the uterine wall likely representing calcified fibroids. The left ovary is more prominent than the right. There could be an underlying ovarian cyst. Consider correlation with ultrasound. There is uncomplicated sigmoid colonic diverticulosis. There is no definite colonic wall thickening to suggest colitis. There is no obstructive bowel pattern. No definite small bowel wall thickening is identified as imaged with unenhanced CT. The remainder of the GI tract is essentially unremarkable. No free abdominal gas or free fluid is appreciated. There are small shotty lymph nodes at the root of the mesentery with surrounding haziness, nonspecific but often associated with chronic mesenteric panniculitis. There is multilevel spondylosis. There is no evidence of acute osseous abnormality. IMPRESSION: 1.Cholelithiasis with suggestion of at least mild gallbladder wall thickening but no pericholecystic inflammatory stranding appreciated. Chronic or early acute cholecystitis cannot completely be excluded. Please correlate clinically. 2.Uncomplicated diverticulosis coli. 3.Prominent left ovary as compared to the right. 4.Other incidental/nonacute findings detailed above. Electronically signed by Kushal Roth 10/18/2019 11:27 AM
[2019-10-18] MEDS: METAMUCIL POWDER PACKET PO SCH (16:36)
--- NOTE | 2019-10-18 16:49 | GASTROENTEROLOGY CONSULTATION ---
DATE: 10/18/2019 CONSULTING PHYSICIAN: Dr. Stevie Reyna. REASON FOR CONSULTATION: Stool incontinence. HISTORY: This is a 74-year-old, white female with multiple medical problems, who was transferred from a retirement apparently with the history of fall and weakness. She is currently being treated for cellulitis of the left lower extremity and C. difficile colitis. The patient tells me that she is feeling fine now. She has not had any abdominal pain or abdominal cramps. She does feel some fullness in the lower abdomen, as if she needs to have a bowel movement, but that she has not had any bowel movement except she has had some soiling of her undergarment and she has been told that she has been having diarrhea. She has had an investigation done which included stool for C. difficile antigen and toxin. In fact, her antigen was positive with negative toxin levels. Her appetite has been good. She is eating well. She has not had any associated nausea or vomiting. She reports no heartburn or reflux symptoms. She has been afebrile and her white count has also been within normal range. She had a CT scan of the abdomen done which showed no evidence of colitis. There was no wall thickness noted in the small bowel or the colon except she had diverticulosis and she had evidence of cholelithiasis with a question of possible cholecystitis. PAST MEDICAL HISTORY: Significant for diabetes, hypertension, chronic atrial fibrillation. PAST SURGICAL HISTORY: She has had multiple orthopedic surgeries including back surgery and right arm surgery. She has had bilateral cataract removal. MEDICATIONS: Prior to hospitalization, she was on pravastatin, Paxil, Lopressor, insulin, Apresoline, gabapentin, Lasix, aspirin, and aripiprazole. ALLERGIES: No known drug allergies. SOCIAL HISTORY: She is a and she lives here in [place]. She used to live in the [place] area. She moved closer to her daughter, who lives in [place]. She does not smoke, does not drink, does not do illicit drugs. FAMILY HISTORY: Noncontributory. REVIEW OF SYSTEMS: As per HPI, as above. PHYSICAL EXAMINATION: On examination, a very pleasant, white female, overweight. In fact, she has morbid obesity. She is lying in bed, conscious, alert. Appears to be in no distress. She has been bedridden, has not been able to move. Vital Signs: Temperature 98.6 degrees, pulse is 90 per minute (ranging from 71 to 90), breathing rate of 18, blood pressure was 134/69. Head is atraumatic and normocephalic. Eyes: Conjunctivae are normal. Sclerae are anicteric. Nares are patent. No discharge noted. Mouth: Buccal mucosa is moist. Throat is normal. Neck: Supple. No lymphadenopathy or thyromegaly. Chest: Bilaterally symmetrical. It is moving with respirations. Breath sounds audible bilaterally. No rhonchi or crepitations could be heard. Heart: S1, S2 audible. No murmur could be appreciated. Abdomen is obese. It is soft. It is nontender. No mass or visceromegaly could be appreciated. Bowel sounds are audible. There was hyperemia and slight edema noted in the left lower extremity. Otherwise, [employer] was grossly intact. No sensory or motor deficits. LABORATORY DATA: Labs were reviewed which showed WBC 6.92, hemoglobin is 11.5, hematocrit 37.4, MCV 88.8, and platelets were 184,000. Sodium 135, potassium 4.2, chloride 98, bicarb is 22, BUN is 36, creatinine 1.4, glucose 200. Urinalysis was negative. CT scan of the abdomen was reviewed. IMPRESSION: This is a 74-year-old, white female who has been essentially bedridden, has presented with weakness and was found to have cellulitis of her lower extremity, currently being treated with antibiotics. She complained of diarrhea but she has had some stool incontinence. Her Clostridium difficile toxins were negative, although her Clostridium difficile antigen was positive. She has been on Rocephin as well as oral vancomycin for some time and has had undergarment soiled twice today. From what appears, I do not think she has Clostridium difficile colitis, although she has received antibiotics for a few days. I would advise to continue vancomycin for another few days. In the meantime, I would recommend her to start Metamucil powder 2 tablespoons once a day, along with a probiotic. Hopefully, that will solidify or give bulk to the stool and make it more formed so she will not have these leakages that she has been experiencing. Encouraged her to sit by this bedside and get moving so that should help her also have good bowel movements rather than having leakages like she has been having. I do not think she has colitis that needs to be treated. Her loose stool could be related to her antibiotic usage as well. She is on Rocephin for her cellulitis. I will follow the patient peripherally. If needed, we will proceed with further workup. cc: MD Stevie Noble Jr, MD
--- NOTE | 2019-10-18 18:31 | CONSULTATION ---
DATE OF CONSULTATION: 10/18/2019 CONSULTING PHYSICIAN: Dr. Reyna. REASON FOR CONSULTATION: Urinary retention. HISTORY OF PRESENT ILLNESS: A 74-year-old female who reports having no difficulty with urinating in the past. She was admitted with weakness, falls, and not feeling well. She was found to have acute kidney injury, cellulitis, weakness, and diabetes exacerbation. She reports that her glucose is poorly controlled at home. She does not recall her last hemoglobin A1c. While admitted, she had evaluation including CT of abdomen and pelvis without contrast secondary to concerning colitis, which revealed no evidence of hydronephrosis or urolithiasis. She had Cisse catheter at the time and the bladder was empty. Reportedly, Cisse catheter was removed and she states she could not urinate and experience dysuria or burning and pain during attempt to urinate. It ultimately prompted a Cisse replacement and she reportedly had 750 mL in her bladder. She denies any history of retention in the past. She reports 1 UTI over the last several years but denies recurrent UTIs. Again, prior to hospitalization, she denies dysuria, gross hematuria, or flank pain. PAST MEDICAL HISTORY: Diabetes mellitus, hypertension, CHF, atrial fibrillation, recurrent falls, cellulitis. PAST SURGICAL HISTORY: Right upper extremity surgery, back surgery, cataract excision. ALLERGIES: No known drug allergies. HOME MEDICATIONS: Lantus, Abilify, aspirin, furosemide, gabapentin, hydralazine, metoprolol, Paxil, pravastatin. SOCIAL HISTORY: Denies tobacco, alcohol, or illicit drug use. FAMILY HISTORY: Negative for malignancies. REVIEW OF SYSTEMS: Reviewed and 12 systems negative except for the HPI. PHYSICAL EXAMINATION: Vital signs: T 98.1 degrees, P 71, BP 132/63. General: No acute distress, pleasant female. HEENT: Normocephalic, atraumatic. Cardiovascular: Regular rhythm. Pulmonary: Bilateral breath sounds. Abdomen: Protuberant, soft, nontender, nondistended. : Bladder is nontender to palpation. Per her request, pelvic examination was deferred, but she states she has not had sensation of bladder coming out or felt a mass protrusion on account of the cystocele. Lymphatic: No groin or cervical lymphadenopathy. Dermatologic: No obvious skin rashes. Neurological: Alert and oriented x3. Psychiatric: Appropriate mood and affect. PERTINENT LABORATORY DATA: White cell count on 10/15/2019 was 7. Creatinine was 1.4. Her urinalysis was negative for a urinary infection. PERTINENT MICROBIOLOGY: Urine culture showed no growth. PERTINENT IMAGES: CT abdomen and pelvis on 10/18/2019 showed no evidence of cysts concerning pathology. ASSESSMENT: A 74-year-old female with diabetes who reportedly states she could not void and had 700+ mL in her bladder. I have discussed with the patient that part of it could be on account of her stress of hospitalization and a significant part could be secondary to possible diabetic neuropathy. Discussed with the patient at length that a true way to assess her neurogenic bladder and possible bladder neuropathy would be with urodynamics which is not performed in the inpatient setting. I have discussed with the patient that for now it would be appropriate to try a trial with Flomax 0.4 mg b.i.d. and see how she does and if she is able to empty, we may defer office urodynamics and possible cystoscopic evaluation altogether. We discussed that if she could not, she may benefit from testing. PLAN: 1. Starting Flomax 0.4 mg b.i.d. 2. Okay to remove Cisse catheter as early as 10/20/2019 and see if she can void. 3. Thank you for the consultation. 4. We will follow. cc: MD Stevie Khan Jr, MD
[2019-10-18] MEDS: FLOMAX PO SCH (20:56)
[2019-10-19] MEDS: VANCOCIN PO SCH ×4 (02:12→20:47)
[2019-10-19] MEDS: TYLENOL PO PRN ×2 (04:24→18:12)
[2019-10-19] MEDS: HUMULIN R SUBQ SCH ×4 (06:20→20:47)
[2019-10-19] MEDS: APRESOLINE PO SCH ×2 (08:21→20:46)
[2019-10-19] MEDS: METAMUCIL POWDER PACKET PO SCH (08:21)
[2019-10-19] MEDS: ELIQUIS PO SCH ×2 (08:22→20:47)
[2019-10-19] MEDS: PAXIL PO SCH (08:22)
[2019-10-19] MEDS: PRAVACHOL PO SCH (08:22)
[2019-10-19] MEDS: LASIX PO SCH (08:22)
[2019-10-19] MEDS: ASPIRIN EC PO SCH (08:22)
[2019-10-19] MEDS: NEURONTIN PO SCH ×3 (08:22→20:47)
[2019-10-19] MEDS: LOPRESSOR PO SCH (08:22)
[2019-10-19] MEDS: FLOMAX PO SCH ×2 (08:23→20:47)
[2019-10-19] MEDS: CULTURELLE PO SCH (08:23)
[2019-10-19] MEDS: ABILIFY PO SCH (08:23)
--- NOTE | 2019-10-19 08:28 | PROGRESS NOTE ---
DATE: 10/19/2019 SUBJECTIVE: The patient says she feels all right. She has not had any diarrhea since a little bit yesterday. She has had a bulking agent. CT scan did show cholelithiasis and questionable large left ovary which we will get an ultrasound of her pelvis for. She seems to be doing better otherwise. GI did see her and for her urinary retention, Dr. Pitts for Urology did see her. He placed her on tamsulosin, said we could start on the to try to wean her off of her Cisse catheter. OBJECTIVE: Vital signs: Blood pressure 153/72, respirations 19, pulse 81, temperature 97.8 degrees Fahrenheit. HEENT: She is normocephalic. EOMs intact. PERRLA. Throat clear. Lungs: Clear to auscultation and percussion without rhonchi, rales, or wheezes. Heart: Irregularly irregular without murmurs, gallops or friction rubs. Abdomen: Soft. Active bowel sounds. No organomegaly or tenderness. Neurological: Intact grossly. Extremities: The left lower extremity still show cellulitis but it has improved considerably. ASSESSMENT: 1. Cellulitis, left lower extremity. 2. Atrial fibrillation. 3. Urinary retention. 4. Clostridium difficile diarrhea but not with a colitis at this point. 5. Diabetes mellitus. 6. Morbid obesity. 7. Deconditioning. PLAN: We will get the ultrasound of her pelvis because of the ovary being enlarged on the left compared to the right. We will try to wean her from the Cisse catheter tomorrow. Continue IV and p.o. antibiotics. Possibly, if all goes well, maybe can go to rehab on Thursday. cc: Stevie Reyna Jr, MD
--- NOTE | 2019-10-19 13:43 | GASTROENTEROLOGY PROGRESS NOTE ---
DATE: 10/19/2019 SUBJECTIVE: Case was discussed with Dr. Mcbride. Per intake and output report patient has had a soft bowel movement today. She seems to be tolerating her diet. We did add Metamucil yesterday to bulk up the stool. The patient has Clostridium difficile antigen positive, but toxin negative. VITAL SIGNS: Temperature 97.6 degrees, pulse 73, blood pressure 131/64. LABORATORY: Hematology from 10/15/2019: WBC 6.92, hemoglobin 11.5, hematocrit 37.4, MCV 88.8, platelet 184,000. Microbiology: Clostridium difficile toxin was negative. Clostridium difficile antigen was positive. ASSESSMENT: 1. Diarrhea, improving. 2. Clostridium difficile antigen positive. Continue current management content. Continue current antibiotics. Continue Metamucil for bulking agent. 3. Urinary retention. Patient has been seen by Urology. PLAN: Continue current management. We will continue to be available. Please re-consult if needed. Otherwise, continue Metamucil and current antibiotics. Further plans to be made according to her progress. I have discussed this case with Dr. Mcbride. GI will sign off for now but please reconsult if needed. Dictated by WILIAN Burton for Adan Mcbride MD cc: WILIAN Rose MD Roger H. Moss Jr, MD
--- NOTE | 2019-10-19 15:00 | Diag Imaging Result Doc PS360 ---
US PELVIC NON-OB COMPLETE - 10/19/2019 INDICATION: enlarged ovary TECHNIQUE: Transabdominal and endovaginal COMPARISON: CT from 10/18/2019 FINDINGS: The exam is extremely challenging due to the patient's size and condition. The ovaries are not visible. The uterus demonstrates a heterogeneous hypoechoic area with a calcification compatible with a small uterine fibroid. This measures 1.5 cm. This is at the uterine fundus. The uterus measures 8 x 4.5 x 3.6 cm. Endometrial stripe thickness is about 5 mm. IMPRESSION: Ovaries are obscured due to patient factors. Small fibroid in the uterus of doubtful significance. Electronically signed by Vito Rosa 10/19/2019 2:57 PM
[2019-10-20] MEDS: VANCOCIN PO SCH ×4 (02:28→20:58)
[2019-10-20] MEDS: HUMULIN R SUBQ SCH ×5 (06:13→23:06)
[2019-10-20 07:14] LABS: BASO# 0.03 X1000 (0.0-0.2); BASO% 0.4 % (0.0-0.8); EOS# 0.26 X1000 (0.0-0.7); EOS% 3.8 % (0.0-10.0); HEMATOCRIT 37.1 % (37.0-47.0); HEMOGLOBIN 11.4 g/dL (12.0-16.0); IMM GRAN# 0.05 X1000 (0.0-0.04); IMM GRAN% 0.7 % (0.0-0.5); LYMPH# 1.04 X1000 (1.2-3.4); LYMPH% 15.1 % (20.5-51.1); MCH 27.5 PG (27-31); MCHC 30.7 g/dL (33-37); MCV 89.4 FL (81-99); MONO# 0.43 X1000 (0.11-0.59); MONO% 6.2 % (1.7-9.3); MPV 10.6 FL (7.4-10.4); NEUT% 73.8 % (42.2-75.2); PLT 227 X1000 (130-400); RBC 4.15 XMIL (4.2-5.4); WBC 6.91 X1000 (4.8-10.8)
[2019-10-20 07:36] LABS: CALCIUM 9.7 mg/dL (8.8-10.2); CREATININE 1.6 mg/dL (0.5-0.9); POTASSIUM 4.8 mmol/L (3.5-5.1)
--- NOTE | 2019-10-20 08:41 | PROGRESS NOTE ---
DATE: 10/20/2019 SUBJECTIVE: The patient says she is feeling better. Still had a little bit of diarrhea but it is much better overall. She is on the Metamucil now. GI has signed off. [place] that we should continue with vancomycin for 10 days and use the Metamucil. Her ultrasound to look at her ovaries was inadequate. Just because of her size, could not see the ovaries with ultrasound. Because of this, I will go ahead and do a CA-125 antigen test. If it is negative, we will probably just wait and watch with a slightly larger ovary on the left seen on CT scan. If it is positive, then we will get a computer repairer to see her. We will go ahead and try to take out her Cisse catheter today. She has been on tamsulosin, and see if she has urinary retention or not. OBJECTIVE: Blood pressure 120/69, respirations 19, pulse 85, temperature 97.6 degrees Fahrenheit. HEENT: She is normocephalic. EOMs intact. PERRLA. Throat clear. Lungs: Clear to auscultation and percussion without rhonchi, rales, or wheezes. Heart: Irregularly irregular without murmurs, gallops, or friction rubs. Abdomen: Soft. Active bowel sounds. No organomegaly or tenderness. Neurological Examination: Intact grossly. Left lower extremity still shows a little redness but much improved with her cellulitis. ASSESSMENT: 1. Cellulitis, left lower extremity. 2. Chronic atrial fibrillation. 3. Clostridium difficile diarrhea but no colitis seen on CT scan. 4. Adult onset diabetes mellitus. 5. Morbid obesity. 6. Bipolar illness. 7. Questionable enlargement of left ovary. 8. Urinary retention, now on tamsulosin, and will try to discontinue the Cisse. PLAN: Continue with treatment. Hopefully, can get to rehab tomorrow if a bed is available, depending on how she does with this other. If she has to have her Cisse, then she can see urology as an outpatient. If her CA-125 is elevated, we will set her up an appointment as an outpatient with oncology. She still needs to take antibiotics for her cellulitis. cc: Stevie Reyna Jr, MD
[2019-10-20] MEDS: FLOMAX PO SCH ×2 (09:34→20:58)
[2019-10-20] MEDS: LASIX PO SCH (09:34)
[2019-10-20] MEDS: ABILIFY PO SCH (09:34)
[2019-10-20] MEDS: PAXIL PO SCH (09:34)
[2019-10-20] MEDS: LOPRESSOR PO SCH (09:34)
[2019-10-20] MEDS: APRESOLINE PO SCH ×2 (09:34→20:58)
[2019-10-20] MEDS: NEURONTIN PO SCH ×3 (09:34→20:58)
[2019-10-20] MEDS: ELIQUIS PO SCH ×2 (09:34→20:58)
[2019-10-20] MEDS: CULTURELLE PO SCH (09:34)
[2019-10-20] MEDS: ASPIRIN EC PO SCH (09:34)
[2019-10-20] MEDS: PRAVACHOL PO SCH (09:34)
[2019-10-20] MEDS: METAMUCIL POWDER PACKET PO SCH (09:36)
[2019-10-20] MEDS: TYLENOL PO PRN (22:57)
[2019-10-21] MEDS: VANCOCIN PO SCH ×2 (02:21→08:20)
[2019-10-21] MEDS: HUMULIN R SUBQ SCH ×2 (06:08→11:21)
[2019-10-21 07:07] LABS: BASO# 0.03 X1000 (0.0-0.2); BASO% 0.4 % (0.0-0.8); EOS# 0.17 X1000 (0.0-0.7); EOS% 2.5 % (0.0-10.0); IMM GRAN# 0.02 X1000 (0.0-0.04); IMM GRAN% 0.3 % (0.0-0.5); LYMPH% 19.3 % (20.5-51.1); MCH 27.4 PG (27-31); MCHC 30.8 g/dL (33-37); MONO# 0.57 X1000 (0.11-0.59); MONO% 8.4 % (1.7-9.3); MPV 10.4 FL (7.4-10.4); NEUT# 4.66 X1000 (1.4-6.5); NEUT% 69.1 % (42.2-75.2); PLT 239 X1000 (130-400); RBC 4.38 XMIL (4.2-5.4); RDW 14.1 % (11.5-14.5); WBC 6.75 X1000 (4.8-10.8)
[2019-10-21 07:37] LABS: CALCIUM 9.4 mg/dL (8.8-10.2); CREATININE 1.4 mg/dL (0.5-0.9); POTASSIUM 4.5 mmol/L (3.5-5.1)
[2019-10-21] MEDS: ELIQUIS PO SCH (08:20)
[2019-10-21] MEDS: FLOMAX PO SCH (08:20)
[2019-10-21] MEDS: PRAVACHOL PO SCH (08:20)
[2019-10-21] MEDS: NEURONTIN PO SCH (08:20)
[2019-10-21] MEDS: CULTURELLE PO SCH (08:20)
[2019-10-21] MEDS: ASPIRIN EC PO SCH (08:21)
[2019-10-21] MEDS: LASIX PO SCH (08:21)
[2019-10-21] MEDS: METAMUCIL POWDER PACKET PO SCH (08:21)
[2019-10-21] MEDS: PAXIL PO SCH (08:21)
[2019-10-21] MEDS: LOPRESSOR PO SCH (08:21)
[2019-10-21] MEDS: ABILIFY PO SCH (08:21)
--- NOTE | 2019-10-21 08:44 | DISCHARGE SUMMARY ---
ADMISSION DATE: 10/08/2019 DISCHARGE DATE: 10/21/2019 FINAL DIAGNOSES: 1. Cellulitis of left lower extremity. 2. Previous Clostridium difficile infection, now cleared. 3. Chronic atrial fibrillation. 4. Bipolar illness. 5. Diabetes mellitus. 6. Hypertension. 7. Hyperlipidemia. 8. Congestive heart failure. 9. Urinary retention. CONSULTATIONS: Were made with Dr. Pitts, Urology; Dr. Mcbride, Gastroenterology. HISTORY OF PRESENT ILLNESS/HOSPITAL COURSE: The patient is a 74-year-old white female who came in with difficulty ambulating and was weak and had cellulitis of left lower extremity. She was initially placed on vancomycin and Rocephin IV. She developed diarrhea, and we did stool cultures that showed positive for the antigen for Clostridium difficile, but negative for toxin. We came back to later and rechecked for toxin and it was still negative. We did another check for antigen and toxin yesterday and both were negative. While she was in the hospital, when she developed diarrhea, we stopped the Rocephin, continued with the vancomycin. Left lower extremity he is getting better. She is in atrial fibrillation, but has not been on blood thinners. I went ahead and started her on Eliquis. I did give her 10 days of p.o. vancomycin 250 mg every 6 hours. I do not think she needs any more of this. She is finally feeling better. She was started on some Metamucil, which helped her diarrhea. It is unclear whether she really had Clostridium difficile or not, and though she was positive for the antigen, the toxin was never positive on her testing. It could have been that she had diarrhea from the vancomycin given IV. The patient did develop some urinary retention, had to have a Cisse catheter placed. Dr. Pitts came to see her, started her on Flomax, and after a couple of days, we were able to get her off the Cisse catheter. We will keep her on that Flomax at least for the next few weeks. PHYSICAL EXAMINATION: Vital Signs: Show blood pressure 148/73, respirations 18, pulse 55, temperature 97.3 degrees Fahrenheit. HEENT: She is normocephalic. EOMS intact. PERRLA. Throat clear. Lungs: Clear to auscultation and percussion without rhonchi, rales, or wheezes. Heart: Irregular irregular without murmurs, gallops, friction rubs. Abdomen: Soft with active bowel sounds. No tenderness. She is morbidly obese. Neurologic: Exam intact grossly. Extremities: Left lower extremity is looking much better. There is a little redness, and I will continue with a little p.o. doxycycline for the next 10 days. She has responded to doxycycline well in the past. PLAN: The patient initially had a fall at home and had been very weak and got a little abrasion to her left knee area, which has resolved well, but apparently had started having redness of her left lower extremity even before the fall. The patient is deconditioned, very weak. I do think she would benefit from rehab. She will go to rehab, and I will see her back in the office after that. cc: Stevie Reyna Jr, MD
[2019-10-21] MEDS: TYLENOL PO PRN (09:12)
[2019-10-21] MEDS: APRESOLINE PO SCH (11:03)
[2019-10-21 11:26] VITALS: BP 143/74
== END 2019-10-21 13:20 | DRG 603 ==
LOC: ED 18:50 → SUATTDRO 10-08 02:18 → INTOOBSV 10-08 02:18 → 3N 10-08 02:18
PROVIDERS: ADMIT Emergency Medicine; ATTEND Emergency Medicine